=== PATIENT | female | born 1955 | race African-American/Black ===

== ENCOUNTER 2017-05-01 14:13 | Emergency (ER) | payer MEDICARE, MEDICAID ==
[~2017-05-01] VITALS: Ht 165.1 cm; Wt 67.0 kg
[~2017-05-01 14:13] MED LIST: AGGR; METF500C; VALS80TA2
[2017-05-01] MEDS ORDERED: BACITRACIN ZINC OINT UDPKT TOP ONE (16:00)
[2017-05-01] MEDS ORDERED: MORPHINE SULFATE 10 MG/ML CPJ IM ONE (16:30)
[2017-05-01] MEDS ORDERED: ONDANSETRON 4MG ODT PO ONE (16:30)
[2017-05-01 18:45] VITALS: BP 160/73
[2017-05-01] MEDS ORDERED: MORPHINE SULFATE 10 MG/ML CPJ IM SCH (19:10)
== END 2017-05-01 19:28 | disposition home or self-care (01) ==
LOC: ER 14:30
DX: M79.602 Pain in left arm (principal); I10 Essential (primary) hypertension; J45.909 Unspecified asthma, uncomplicated; E11.9 Type 2 diabetes mellitus without complications; Z79.82 Long term (current) use of aspirin; W01.0XXA Fall on same level from slipping, tripping and stumbling without subsequent striking against object, initial encounter; Y93.89 Activity, other specified; Y92.89 Other specified places as the place of occurrence of the external cause; Y99.8 Other external cause status
CPT/HCPCS: 73030; 73060; 73080; 96372; 99284; J2270; Q0162

== ENCOUNTER 2018-06-04 12:10 | Emergency (ER) | payer MEDICARE, MEDICAID ==
[~2018-06-04] VITALS: Ht 162.6 cm; Wt 85.0 kg
[2018-06-04 12:25] VITALS: BP 175/81
== END 2018-06-04 15:43 | disposition home or self-care (01) ==
LOC: ER 12:10
DX: S80.862A Insect bite (nonvenomous), left lower leg, initial encounter (principal); S50.861A Insect bite (nonvenomous) of right forearm, initial encounter; W57.XXXA Bitten or stung by nonvenomous insect and other nonvenomous arthropods, initial encounter; Y93.89 Activity, other specified; Y92.89 Other specified places as the place of occurrence of the external cause; E11.9 Type 2 diabetes mellitus without complications; I10 Essential (primary) hypertension; Z86.73 Personal history of transient ischemic attack (TIA), and cerebral infarction without residual deficits
CPT/HCPCS: 99282